=== PATIENT | female | born 1965 | race Caucasian/White ===

== ENCOUNTER → 2018-06-07 | Outpatient (CLI) | payer OTHER ==
[~2018-06-07] MED LIST: GADOBUTROL 10 ML VIAL IVP ONE
== END ==
LOC: FIMAGING 11:46
PROVIDERS: ATTEND Internal Medicine
DX: Z12.39 Encounter for other screening for malignant neoplasm of breast (principal); Z80.3 Family history of malignant neoplasm of breast
CPT/HCPCS: A9585; C8908

== ENCOUNTER → 2018-08-18 | Outpatient (CLI) | payer OTHER ==
[~2018-08-18] MED LIST changes: +ACETAMINOPHEN 325 MG TAB PO PRN; +BUPIVACAINE 0.5% 30 ML SDV ONE; +FLUMAZENIL 0.5 MG/5 ML MDV IVP ONE; +FLUMAZENIL 0.5 MG/5 ML MDV IVP PRN; +LIDOCAINE 1% 5 ML SDV ONE; +MEPERIDINE 25 MG/ML SYR IVP PRN; +MIDAZOLAM 2 MG/2 ML VIAL IVP PRN; +MIDAZOLAM 2 MG/2 ML VIAL ONE; +NA BICARBONATE 50 MEQ/50 ML VIAL ONE; +NALOXONE HCL 0.4 MG/ML INJ IVP PRN; +NALOXONE HCL 0.4 MG/ML INJ ONE; +NS 1,000 ML IV SCH; +ONDANSETRON 4 MG/2 ML VIAL IVP PRN; +THROMBIN (BOVINE) 5,000 UNIT VIAL TP ONE; +fentaNYL 100 MCG/2 ML INJ IVP PRN; +fentaNYL 100 MCG/2 ML INJ ONE
[2018-08-18 09:04] VITALS: BP 120/78
--- NOTE | 2018-08-18 09:39 | PDGENHP ---
History & Physical Chief Complaint: FH of breast cancer with abnormal mri breast needing bx Pertinent Past, Social, Family History: hx of sleep apnea Cardiorespiratory Assessment: heart beat regular, lungs clear
--- NOTE | 2018-08-18 09:42 | PDPROPOC ---
Sedation Plan of Care Sedation Plan of Care: vital signs stable, mental status noted, patient educated of risks, benefits, alternatives, patient can tolerate sedation ASA Classification: ASA 1 Planned drugs: fentanyl, midazolam Mallampati Score: Class 3 Mallampati Reference Image: Patient passed 3-3-2 rule?: Yes
== END ==
LOC: FIMAGING 08:05
PROVIDERS: ATTEND Surgery
PROC: 0HBT3ZX Excision of Right Breast, Percutaneous Approach, Diagnostic (ICD-10-PCS; principal; 2018-08-18)
DX: R92.8 Other abnormal and inconclusive findings on diagnostic imaging of breast (principal); N60.11 Diffuse cystic mastopathy of right breast; Z80.3 Family history of malignant neoplasm of breast
CPT/HCPCS: A9585; J2250; J2310; J3010

== ENCOUNTER 2018-08-25 07:58 | Outpatient (CLI) | payer OTHER ==
[2018-08-25] MEDS ORDERED: FLUMAZENIL 0.5 MG/5 ML MDV IVP PRN (08:08)
[2018-08-25] MEDS ORDERED: MIDAZOLAM 2 MG/2 ML VIAL IVP PRN (08:08)
[2018-08-25] MEDS ORDERED: MEPERIDINE 25 MG/ML SYR IVP PRN (08:08)
[2018-08-25] MEDS ORDERED: fentaNYL 100 MCG/2 ML INJ IVP PRN (08:08)
[2018-08-25] MEDS ORDERED: NALOXONE HCL 0.4 MG/ML INJ IVP PRN (08:08)
[2018-08-25] MEDS ORDERED: NS 1,000 ML IV SCH (08:15)
[2018-08-25] MEDS ORDERED: FLUMAZENIL 0.5 MG/5 ML MDV IVP ONE (08:22)
[2018-08-25] MEDS ORDERED: NALOXONE HCL 0.4 MG/ML INJ ONE (08:22)
[2018-08-25] MEDS ORDERED: fentaNYL 100 MCG/2 ML INJ ONE (08:22)
[2018-08-25] MEDS ORDERED: MIDAZOLAM 2 MG/2 ML VIAL ONE (08:22)
[2018-08-25] MEDS ORDERED: THROMBIN (BOVINE) 5,000 UNIT VIAL TP ONE (08:23)
[2018-08-25] MEDS ORDERED: GADOBUTROL 10 ML VIAL IVP ONE (09:21)
[2018-08-25] MEDS ORDERED: BUPIVACAINE 0.5% 30 ML SDV ONE (09:21)
[2018-08-25] MEDS ORDERED: NA BICARBONATE 50 MEQ/50 ML VIAL ONE (09:21)
[2018-08-25] MEDS ORDERED: LIDOCAINE 1% 5 ML SDV ONE (09:22)
--- NOTE | 2018-08-25 10:09 | PDPROPOC ---
Sedation Plan of Care Sedation Plan of Care: vital signs stable, mental status noted, patient educated of risks, benefits, alternatives, patient can tolerate sedation ASA Classification: ASA 1 Mallampati Score: Class 2 Mallampati Reference Image: Patient passed 3-3-2 rule?: Yes
--- NOTE | 2018-08-25 10:09 | PDGENHP ---
History & Physical Chief Complaint: abnl breast MRI Cardiorespiratory Assessment: RRR, clear
[2018-08-25 11:54] VITALS: BP 120/79
== END 2018-08-25 12:05 | disposition home or self-care (01) ==
LOC: FIMAGING 07:58
PROVIDERS: ATTEND Surgery
DX: N60.12 Diffuse cystic mastopathy of left breast (principal)
CPT/HCPCS: A9585; C8905; J2250; J2310; J3010